=== PATIENT | male | born 1985 | race Hispanic/Latino ===

== ENCOUNTER 2022-04-26 13:52 | Emergency (ER) | payer OTHER ==
[~2022-04-26] VITALS: Ht 175.3 cm; Wt 145.1 kg
[2022-04-26] MEDS ORDERED: NAPR-1196 PO (14:45)
[2022-04-26 15:45] VITALS: BP 133/79
[2022-04-26] MEDS ORDERED: KETOROLAC 30MG VIAL (30MG/ML) IM ONE (16:00)
== END 2022-04-26 16:15 | disposition home or self-care (01) ==
LOC: EDH 13:52
DX: S46.912A Strain of unspecified muscle, fascia and tendon at shoulder and upper arm level, left arm, initial encounter (principal); M79.632 Pain in left forearm; M25.561 Pain in right knee; V49.49XA Driver injured in collision with other motor vehicles in traffic accident, initial encounter; Y93.89 Activity, other specified; Y92.89 Other specified places as the place of occurrence of the external cause; Y99.8 Other external cause status
CPT/HCPCS: 71045; 73030; 73090; 73562; 96372; 99285; J1885